=== PATIENT | male | born 1950 | race Caucasian/White ===

== ENCOUNTER 2016-07-27 11:57 | Observation (INO) | payer OTHER ==
[2016-07-27] MEDS ORDERED: Sodium Chloride 0.9% 10 ML Syringe FLUSH PRN (12:05)
[2016-07-27] MEDS ORDERED: Sodium Chloride 0.9% 2.5 ML Syringe FLUSH PRN (12:05)
--- NOTE | 2016-07-27 12:13 | EDM.PDOC ---
ED HPI GENERAL MEDICAL PROBLEM - General Chief Complaint: General Stated Complaint: [facility] Time Seen by Provider: 07/27/16 11:57 - History of Present Illness INITIAL COMMENTS - FREE TEXT/NARRATIVE: HISTORY AND PHYSICAL: History of present illness: The patient is a 66-year-old male with a history of diabetes irregular heartbeat chronic neck pain and presents [facility] with a history of a syncopal event this morning. According to the patient he had a normal day yesterday and slept all night without difficulty and woke this morning at the usual time and went to go to the bathroom. While he was standing to urinate he had a syncopal event at 4:45 AM. According to the patient he had no preceding symptoms of dizziness lightheadedness chest pain headache nausea and the next thing that he recalls is being on the ground. He says that he has a dull headache and a slight neck pain but he has chronic neck pain problems. He has no extremity complaints except a small bruise on his right knee and the bones of the right knee did not bother him. He has no hip pain no abdominal complaints no chest pain or shortness of breath no palpitations no nausea no vomiting and no recent diarrhea or fevers. The patient also denies any mid or lower back pain. The patient presented to the [facility] for evaluation and was sent here. The patient says he was not unconscious for a long period time. The patient states he had a similar episode to this less than 6 months ago but he was not urinating at the time but sitting in his chair watching television. Patient states he has a history of an irregular heartbeat for which he takes metoprolol that was diagnosed several years ago but he was not sure of the name of his arrhythmia. The patient does not follow with a it operations analyst but only at the [facility]. Patient has been eating and drinking normally. In the ED he presents with a dull headache and slight neck ache which is more than his usual neck pain and no other complaints or neurosensory changes. He currently denies any chest pain shortness of breath or palpitations. Review of systems: As per history of present illness and below otherwise all systems reviewed and negative. Past medical history: As per history of present illness and as reviewed below otherwise noncontributory. Surgical history: As per history of present illness and as reviewed below otherwise noncontributory. Social history: No reported history of drug or alcohol abuse. Family history: As per history of present illness and as reviewed below otherwise noncontributory. Physical exam: General: Well-developed well-nourished male who is nontoxic and speaking clearly and easily in the ED. He ambulated in without difficulty and speaks without difficulty. HEENT: Atraumatic, normocephalic, there are no palpable bony deformities or soft tissue swelling on the scalp, there is no facial swelling or palpable deformities, pupils reactive, negative for conjunctival pallor or scleral icterus, mucous membranes moist, throat clear, neck supple, nontender, trachea midline. There are no midline step-offs tenderness defects of the cervical spine but some diffuse paraspinal tenderness in the upper area. Lungs: Clear to auscultation, breath sounds equal bilaterally, chest nontender. Heart: S1S2, regular, negative for clicks, rubs, or JVD. Abdomen: Soft, nondistended, nontender. Negative for masses or hepatosplenomegaly. Negative for costovertebral tenderness. Pelvis: Stable nontender. Genitourinary: Deferred. Rectal: Deferred. Extremities: Atraumatic except for a very superficial small abrasion at his right knee without any palpable deformities soft tissue swelling effusions or defects. There is no tenderness at the right knee and he has full range of motion. He is no bony hip tenderness and all other extremities have full range of motion without defects or deformities., negative for cords or calf pain. Neurovascular unremarkable. Neuro: Awake, alert, oriented. Cranial nerves II through XII unremarkable. Cerebellum unremarkable. Motor and sensory unremarkable throughout. Exam nonfocal. Back: There are no midline step-offs tenderness defects of the thoracic or lumbar spine and no posterior rib or posterior pelvis tenderness. Diagnostics: CT of the head and C-spine, orthostatic vitals, EKG, CBC CMP troponin TSH UA INR magnesium level, one view chest x-ray Therapeutics: IV O2 monitor 1346: All testing results were discussed with the patient as well as with our hospitalist, Dr. Benítez. He will be admitted as an observation admission and is agreeable to do so. Patient has been stable in the ER and asymptomatic Impression: Syncopal event Definitive disposition and diagnosis as appropriate pending reevaluation and review of above. head Pain Score (Numeric/FACES): 7 - Related Data Allergies Allergy/AdvReac Type Severity Reaction Status Date / Time Penicillins Allergy Rash Verified 07/27/16 12:07 sulfamethoxazole Allergy Itching Verified 07/27/16 12:00 [From Bactrim] trimethoprim [From Bactrim] Allergy Itching Verified 07/27/16 12:00 Ionic contrast media Allergy Anaphylactic Uncoded 07/27/16 12:07 Shock Home Meds: Home Meds Aspirin 81 mg PO DAILY 07/27/16 [History] Chlorthalidone 25 mg PO DAILY 07/27/16 [History] Cyclobenzaprine [Flexeril] 10 mg PO TID 07/27/16 [History] Dextran 70/Hypromellose [Artificial Tears Eye Drops] 1 drop OP BID 07/27/16 [ History] Finasteride 5 mg PO DAILY 07/27/16 [History] Fish Oil/[place]-3 Fatty Acids [Fish Oil 1,000 MG] 1,000 mg PO DAILY 07/27/16 [ History] Fluticasone Propionate [Flonase] 1 spray NASBOTH DAILY 07/27/16 [History] Gabapentin [Neurontin] 200 mg PO DAILY 07/27/16 [History] Gabapentin [Neurontin] 800 mg PO BEDTIME 07/27/16 [History] Insulin Glarg,Human.Rec.Analog [Lantus] 0 units SUBCUT BID 07/27/16 [History] Loratadine [Allergy] 10 mg PO DAILY 07/27/16 [History] Magnesium Oxide 420 mg PO DAILY 07/27/16 [History] Metoprolol Tartrate 37.5 mg PO BID 07/27/16 [History] Omeprazole 20 mg PO BIDAC 07/27/16 [History] Tamsulosin [Flomax] 0.4 mg PO BIDPC 07/27/16 [History] glipiZIDE [Glucotrol] 7.5 mg PO BIDAC 07/27/16 [History] metFORMIN HCl [Metformin HCl] 1,000 mg PO BID 07/27/16 [History] oxyCODONE HCl/Acetaminophen [Endocet 5-325 Tablet] 1 tab PO Q6H PRN 07/27/16 [ History] ED ROS GENERAL - Review of Systems Review Of Systems: ROS reveals no pertinent complaints other than HPI. ED EXAM, GENERAL - Physical Exam Exam: See Below (See dictation) Course - Vital Signs Last Recorded V/S: Last Vital Signs Temp 37.0 C 07/27/16 12:03 Pulse 83 07/27/16 12:53 Resp 16 07/27/16 12:53 BP 129/73 07/27/16 12:53 Pulse Ox 98 07/27/16 12:53 Orthostatic Blood Pressure [ 116/70 Standing] Orthostatic Blood Pressure [ 130/67 Sitting] Orthostatic Blood Pressure [ 130/72 Supine] - Orders/Labs/Meds Orders: Active Orders 24 hr Category Date Time Status Patient Status [ADT] Stat ADT 07/27/16 13:46 Ordered Cardiac Monitoring [RC] CONTINUOUS Care 07/27/16 12:05 Active EKG Documentation Completion [RC] STAT Care 07/27/16 12:05 Active Orthostatic Vital Signs [RC] ASDIRECTED Care 07/27/16 12:06 Active Oxygen Therapy, ED [RC] ASDIRECTED Care 07/27/16 12:05 Active Pulse Oximetry [RC] CONTINUOUS Care 07/27/16 12:06 Active Cervical Spine wo Cont [CT] Stat Exams 07/27/16 12:07 Taken Head wo Cont [CT] Stat Exams 07/27/16 12:06 Ordered Sodium Chloride 0.9% [Normal Saline] 1,000 ml Med 07/27/16 13:15 Active IV ASDIRECTED Sodium Chloride 0.9% [Saline Flush] Med 07/27/16 12:05 Active 10 ml FLUSH ASDIRECTED PRN Sodium Chloride 0.9% [Saline Flush] Med 07/27/16 12:05 Active 2.5 ml FLUSH ASDIRECTED PRN Saline Lock Insert [OM.PC] Stat Oth 07/27/16 12:05 Ordered Medication Orders Sodium Chloride (Normal Saline) 1,000 mls @ 100 mls/hr IV ASDIRECTED JUAN Sodium Chloride (Saline Flush) 10 ml FLUSH ASDIRECTED PRN PRN Reason: Keep Vein Open Sodium Chloride (Saline Flush) 2.5 ml FLUSH ASDIRECTED PRN PRN Reason: Keep Vein Open Labs: Laboratory Tests 07/27/16 07/27/16 07/27/16 Range/Units 12:20 12:20 12:20 WBC 10.15 (4.0-11.0) K/uL RBC 4.22 L (4.50-5.90) M/uL Hgb 12.8 L (13.0-17.0) g/dL Hct 38.8 (38.0-50.0) % MCV 91.9 (80.0-98.0) fL MCH 30.3 (27.0-32.0) pg MCHC 33.0 (31.0-37.0) g/dL RDW Std Deviation 43.9 (28.0-62.0) fl RDW Coeff of Neelam 13 (11.0-15.0) % Plt Count 208 (150-400) K/uL MPV 9.20 (7.40-12.00) fL Neut % (Auto) 78.1 (48.0-80.0) % Lymph % (Auto) 16.7 (16.0-40.0) % Charlton % (Auto) 4.3 (0.0-15.0) % Eos % (Auto) 0.6 (0.0-7.0) % Baso % (Auto) 0.3 (0.0-1.5) % Neut # (Auto) 7.9 H (1.4-5.7) K/uL Lymph # (Auto) 1.7 (0.6-2.4) K/uL Charlton # (Auto) 0.4 (0.0-0.8) K/uL Eos # (Auto) 0.1 (0.0-0.7) K/uL Baso # (Auto) 0.0 (0.0-0.1) K/uL Nucleated RBC % 0.0 /100WBC Nucleated RBCs # 0 K/uL INR (0.86-1.11) Sodium 141 (136-146) mmol/L Potassium 4.6 (3.5-5.1) mmol/L Chloride 101 (98-110) mmol/L Carbon Dioxide 22 (21-31) mmol/L BUN 28 H (6.0-23.0) mg/dL Creatinine 1.2 (0.6-1.5) mg/dL Est Cr Clr Drug Dosing 67.00 mL/min Estimated GFR (MDRD) > 60.0 ml/min Glucose 206 H (60-110) mg/dL Calcium 10.3 (8.8-10.8) mg/dL Magnesium 1.4 L (1.5-2.3) mEq/L Total Bilirubin 0.5 (0.1-1.5) mg/dL AST 17 (5-40) IU/L ALT 23 (8-54) IU/L Alkaline Phosphatase 53 (40-150) Troponin I < 0.10 (0.0-0.29) NG/ML Total Protein 7.1 (6.0-8.0) g/dL Albumin 4.3 (3.4-4.8) g/dL Globulin 2.8 (2.0-3.5) g/dL Albumin/Globulin Ratio 1.5 (1.3-2.8) TSH 3rd Generation 0.68 (0.47-5.0) uIU/mL Urine Color Urine Appearance Urine pH (5.0-8.0) Ur Specific Ellery (1.001-1.035) Urine Protein (NEGATIVE) mg/dL Urine Glucose (UA) (NEGATIVE) mg/dL Urine Ketones (NEGATIVE) mg/dL Urine Occult Blood (NEGATIVE) Urine Nitrite (NEGATIVE) Urine Bilirubin (NEGATIVE) Urine Urobilinogen (<2.0) EU/dL Ur Leukocyte Esterase (NEGATIVE) Urine RBC (0-2/HPF) Urine WBC (0-5/HPF) Ur Epithelial Cells (NONE-FEW) Urine Bacteria (NEGATIVE) 07/27/16 07/27/16 Range/Units 12:20 13:00 WBC (4.0-11.0) K/uL RBC (4.50-5.90) M/uL Hgb (13.0-17.0) g/dL Hct (38.0-50.0) % MCV (80.0-98.0) fL MCH (27.0-32.0) pg MCHC (31.0-37.0) g/dL RDW Std Deviation (28.0-62.0) fl RDW Coeff of Neelam (11.0-15.0) % Plt Count (150-400) K/uL MPV (7.40-12.00) fL Neut % (Auto) (48.0-80.0) % Lymph % (Auto) (16.0-40.0) % Charlton % (Auto) (0.0-15.0) % Eos % (Auto) (0.0-7.0) % Baso % (Auto) (0.0-1.5) % Neut # (Auto) (1.4-5.7) K/uL Lymph # (Auto) (0.6-2.4) K/uL Charlton # (Auto) (0.0-0.8) K/uL Eos # (Auto) (0.0-0.7) K/uL Baso # (Auto) (0.0-0.1) K/uL Nucleated RBC % /100WBC Nucleated RBCs # K/uL INR 1.03 (0.86-1.11) Sodium (136-146) mmol/L Potassium (3.5-5.1) mmol/L Chloride (98-110) mmol/L Carbon Dioxide (21-31) mmol/L BUN (6.0-23.0) mg/dL Creatinine (0.6-1.5) mg/dL Est Cr Clr Drug Dosing mL/min Estimated GFR (MDRD) ml/min Glucose (60-110) mg/dL Calcium (8.8-10.8) mg/dL Magnesium (1.5-2.3) mEq/L Total Bilirubin (0.1-1.5) mg/dL AST (5-40) IU/L ALT (8-54) IU/L Alkaline Phosphatase (40-150) Troponin I (0.0-0.29) NG/ML Total Protein (6.0-8.0) g/dL Albumin (3.4-4.8) g/dL Globulin (2.0-3.5) g/dL Albumin/Globulin Ratio (1.3-2.8) TSH 3rd Generation (0.47-5.0) uIU/mL Urine Color YELLOW Urine Appearance CLEAR Urine pH 5.5 (5.0-8.0) Ur Specific Ellery 1.020 (1.001-1.035) Urine Protein NEGATIVE (NEGATIVE) mg/dL Urine Glucose (UA) 100 H (NEGATIVE) mg/dL Urine Ketones 15 H (NEGATIVE) mg/dL Urine Occult Blood NEGATIVE (NEGATIVE) Urine Nitrite NEGATIVE (NEGATIVE) Urine Bilirubin NEGATIVE (NEGATIVE) Urine Urobilinogen 0.2 (<2.0) EU/dL Ur Leukocyte Esterase TRACE (NEGATIVE) Urine RBC 0-1 (0-2/HPF) Urine WBC 1-2 (0-5/HPF) Ur Epithelial Cells RARE (NONE-FEW) Urine Bacteria FEW (NEGATIVE) Meds: Medications Generic Name Dose Route Start Last Admin Trade Name Freq PRN Reason Stop Dose Admin Sodium Chloride 1,000 mls @ 100 mls/hr 07/27/16 13:15 Normal Saline IV ASDIRECTED JUAN Sodium Chloride 10 ml 07/27/16 12:05 Saline Flush FLUSH ASDIRECTED PRN Keep Vein Open Sodium Chloride 2.5 ml 07/27/16 12:05 Saline Flush FLUSH ASDIRECTED PRN Keep Vein Open Departure - Departure Time of Disposition: 13:48 Disposition: Refer to Observation Condition: good Clinical Impression: Syncope Qualifiers: Syncope type: unspecified Qualified Code(s): R55 - Syncope and collapse Forms: ED Department Discharge - My Orders Last 24 Hours: My Active Orders 07/27/16 12:05 Cardiac Monitoring [RC] CONTINUOUS EKG Documentation Completion [RC] STAT Oxygen Therapy, ED [RC] ASDIRECTED Sodium Chloride 0.9% [Saline Flush] 10 ml FLUSH ASDIRECTED PRN Sodium Chloride 0.9% [Saline Flush] 2.5 ml FLUSH ASDIRECTED PRN Saline Lock Insert [OM.PC] Stat 07/27/16 12:06 Orthostatic Vital Signs [RC] ASDIRECTED Pulse Oximetry [RC] CONTINUOUS Head wo Cont [CT] Stat 07/27/16 12:07 Cervical Spine wo Cont [CT] Stat 07/27/16 13:15 Sodium Chloride 0.9% [Normal Saline] 1,000 ml IV ASDIRECTED 07/27/16 13:46 Patient Status [ADT] Stat - Assessment/Plan Last 24 Hours: My Active Orders 07/27/16 12:05 Cardiac Monitoring [RC] CONTINUOUS EKG Documentation Completion [RC] STAT Oxygen Therapy, ED [RC] ASDIRECTED Sodium Chloride 0.9% [Saline Flush] 10 ml FLUSH ASDIRECTED PRN Sodium Chloride 0.9% [Saline Flush] 2.5 ml FLUSH ASDIRECTED PRN Saline Lock Insert [OM.PC] Stat 07/27/16 12:06 Orthostatic Vital Signs [RC] ASDIRECTED Pulse Oximetry [RC] CONTINUOUS Head wo Cont [CT] Stat 07/27/16 12:07 Cervical Spine wo Cont [CT] Stat 07/27/16 13:15 Sodium Chloride 0.9% [Normal Saline] 1,000 ml IV ASDIRECTED 07/27/16 13:46 Patient Status [ADT] Stat
[2016-07-27 13:00] LABS: CHLORIDE,CL 101 mmol/L (98-110); SODIUM,NA 141 mmol/L (136-146)
--- NOTE | 2016-07-27 13:21 | CR ---
EXAMINATION: PA chest radiograph. HISTORY: Weakness. FINDINGS: The trachea is midline. The cardiomediastinal silhouette is within normal limits. No pulmonary infil trates, effusions or pneumothorax. Moderate hyperinflation and mild interstitial prominence. Osseous structures appear unremarkable. IMPRESSION: No acute cardiopulmonary process.
[2016-07-27] MEDS: Sodium Chloride 0.9% 1,000 ML IV SCH ×2 (14:11→23:14)
--- NOTE | 2016-07-27 14:37 | PCM.HP ---
H&P History of Present Illness - General Date of Service: 07/27/16 Source of Information: [facility], Other ([facility] - History of Present Illness Initial Comments - Free Text/Narative: 66 y o diabetic man with history unknown arrhythmia passed out after urinating. There were no premonitory symptoms, no chest pain, no nausea, diaphoresis nor any awareness of unusual heart beat Recalls one prior episode of syncope, sitting of bed, he fell forward onto all fours Onset of Symptoms: Reports: today Duration of Symptoms: Reports: Minutes: Severity: severe Associated Symptoms: Reports: no other symptoms head Pain Score (Numeric/FACES): 7 - Related Data Allergies/Adverse Reactions: Allergies Allergy/AdvReac Type Severity Reaction Status Date / Time Penicillins Allergy Rash Verified 07/27/16 12:07 sulfamethoxazole Allergy Itching Verified 07/27/16 12:00 [From Bactrim] trimethoprim [From Bactrim] Allergy Itching Verified 07/27/16 12:00 Ionic contrast media Allergy Anaphylactic Uncoded 07/27/16 12:07 Shock Home Medications: Home Meds Aspirin 81 mg PO DAILY 07/27/16 [History] Chlorthalidone 25 mg PO DAILY 07/27/16 [History] Cyclobenzaprine [Flexeril] 10 mg PO TID 07/27/16 [History] Dextran 70/Hypromellose [Artificial Tears Eye Drops] 1 drop OP BID 07/27/16 [ History] Finasteride 5 mg PO DAILY 07/27/16 [History] Fish Oil/[place]-3 Fatty Acids [Fish Oil 1,000 MG] 1,000 mg PO DAILY 07/27/16 [ History] Fluticasone Propionate [Flonase] 1 spray NASBOTH DAILY 07/27/16 [History] Gabapentin [Neurontin] 200 mg PO DAILY 07/27/16 [History] Gabapentin [Neurontin] 800 mg PO BEDTIME 07/27/16 [History] Insulin Glarg,Human.Rec.Analog [Lantus] 0 units SUBCUT BID 07/27/16 [History] Loratadine [Allergy] 10 mg PO DAILY 07/27/16 [History] Magnesium Oxide 420 mg PO DAILY 07/27/16 [History] Metoprolol Tartrate 37.5 mg PO BID 07/27/16 [History] Omeprazole 20 mg PO BIDAC 07/27/16 [History] Tamsulosin [Flomax] 0.4 mg PO BIDPC 07/27/16 [History] glipiZIDE [Glucotrol] 7.5 mg PO BIDAC 07/27/16 [History] metFORMIN HCl [Metformin HCl] 1,000 mg PO BID 07/27/16 [History] oxyCODONE HCl/Acetaminophen [Endocet 5-325 Tablet] 1 tab PO Q6H PRN 07/27/16 [ History] Past Medical History HEENT History: Reports: Hard of hearing Cardiovascular History: Reports: Arrhythmia, Hypertension Respiratory History: Reports: COPD Gastrointestinal History: Reports: GERD Genitourinary History: Reports: BPH Musculoskeletal History: Reports: Back pain, chronic, Neck pain, chronic, Other (see below) Other Musculoskeletal History: hip pain Neurological History: Reports: Neuropathy, diabetic Endocrine/Metabolic History: Reports: Diabetes, type II - Past Surgical History Male Surgical History: Reports: Kidney stone extraction (had nephrostomy), Other (see below) (urinary retention, occ straight cath) Neurological Surgical History: Reports: C-Spine (anterior approach) Social & Family History - Family History Family Medical History: Noncontributory Oncologic: Reports: Colon Other Oncologic Family History: father 8oies - Tobacco Use Smoking Status *Q: Never Smoker - Caffeine Use Caffeine Use: Reports: None - Alcohol Use Alcohol Use History: No - Recreational Drug Use Recreational Drug Use: No - Living Situation & Occupation Occupation: unemployed (retired police and farming) H&P Review of Systems - Review of Systems: Review Of Systems: See Below General: Reports: no symptoms HEENT: Reports: no symptoms Pulmonary: Reports: No Symptoms Cardiovascular: Reports: no symptoms Gastrointestinal: Reports: No symptoms Genitourinary: Reports: retention Musculoskeletal: Reports: joint pain Skin: Reports: no symptoms Psychiatric: Reports: no symptoms Neurological: Reports: Paresthesia, Syncope Exam - Exam Exam: See Below - Vital Signs Vital Signs: Last Vital Signs Temp 37.0 C 07/27/16 12:03 Pulse 83 07/27/16 12:53 Resp 16 07/27/16 12:53 BP 129/73 07/27/16 12:53 Pulse Ox 98 07/27/16 12:53 Weight: 80.4 kg - Exam General: alert, oriented HEENT: Conjunctiva clear Neck: 2+ carotid pulse wo bruit Lungs: Clear to auscultation Cardiovascular: regular rate, regular rhythm Abdomen: normal bowel sounds (Male) Exam: Deferred Rectal (Males) Exam: Deferred Back Exam: normal inspection Extremities: normal inspection Skin: warm, dry Psychiatric: alert, normal affect - Patient Data Result Diagrams: 07/27/16 12:20 07/27/16 12:20 *Q Meaningful Use (ADM) - VTE *Q VTE Criteria *Q: - Stroke *Q Stroke Criteria *Q: - AMI *Q AMI Criteria *Q: Problem List Initiated/Reviewed/Updated: Yes Orders Last 24hrs: Active Orders 24 hr Category Date Time Status Orthostatic Vital Signs [RC] ASDIRECTED Care 07/27/16 14:28 Active Telemetry Monitoring [Cardiac Monitoring] [RC] Q8H Care 07/27/16 14:05 Active Medication Orders Sodium Chloride (Normal Saline) 1,000 mls @ 100 mls/hr IV ASDIRECTED JUAN Last Admin: 07/27/16 14:11 Dose: 100 mls/hr Sodium Chloride (Saline Flush) 10 ml FLUSH ASDIRECTED PRN PRN Reason: Keep Vein Open Sodium Chloride (Saline Flush) 2.5 ml FLUSH ASDIRECTED PRN PRN Reason: Keep Vein Open Assessment/Plan Comment:: syncope associated with micturition (Though 1st episode was not) history of arrhythmia urinary retention diabetes Necj pain and Hx cervical laminectomy
[2016-07-27] MEDS ORDERED: Ibuprofen 600 MG Tab PO PRN (14:49)
[2016-07-27] MEDS ORDERED: Magnesium Sulfate/Water 4 GM in Premix Bag 1 BAG IV ONE (14:59)
[2016-07-27] MEDS: Magnesium Oxide 400 MG Tab PO SCH (15:33)
--- NOTE | 2016-07-27 16:05 | CT ---
EXAM DATE: 07/27/16 PATIENT'S AGE: 66 Patient: CAITLYN CASTRO Facility: [place], [place] Site . Site : 1950 Study: CT Head [id number] 12:52:09 PM Ordering Physician: Amina Berrios Final Report: INDICATION: Patient fell and struck his head. Complains of headache. COMPARISON: none TECHNIQUE: A CT volumetric acquisition was performed of the brain without IV contrast. FINDINGS: The CT images reveal a normal appearance of the cerebral ventricles and basal cisterns. There is no evidence of intracranial hemorrhage, tissue infarction or mass effect. There is normal [place] white matter differentiation. The mastoid air cells and middle ear cavities are clear. The calvarium appears intact. There is normal aeration of the visualized paranasal sinuses. IMPRESSION: Negative head CT. Dictated by Vincent Mahmood MD @ Jul 27 2016 12:53PM (Electronic Signature) Report Signed by Proxy. MESHA
--- NOTE | 2016-07-27 16:05 | CT ---
EXAM DATE: 07/27/16 PATIENT'S AGE: 66 Patient: CAITLYN CASTRO Facility: [place], [place] Site . Site : 1950 Study: CT Spine Cervical [id number]/[id number] 12:52:30 PM Ordering Physician: Amina Berrios Final Report: Indication: Trauma, patient fell. Technique: A CT volumetric acquisition was performed of the cervical spine without IV contrast. Findings: The cervical vertebra demonstrate anatomic alignment on the sagittal and coronal reformations. There is no evidence of an acute fracture, subluxation or paraspinal hematoma. There is ankylosis of the C6 and C7 vertebral bodies and there are bulky anterior marginal osteophytes and disc degeneration above this level of fusion at C5-6. There is disc degeneration also at C7-T1. The facet joints show anatomic alignment. There is joint space narrowing and facet degeneration on the left at C4-5. There is no evidence of an epidural or paraspinal soft tissue hematoma. Impression: Underlying degenerative disc disease and facet arthropathy. No evidence of a fracture or vertebral subluxation. Dictated by Vincent Mahmood MD @ Jul 27 2016 12:53PM (Electronic Signature) Report Signed by Proxy. MESHA
[2016-07-27] MEDS: oxyCODONE 5 MG Tab PO PRN (16:09)
[2016-07-27] MEDS: Omeprazole 20 MG Cap.CR PO SCH (16:23)
[2016-07-27] MEDS: glipiZIDE 5 MG Tab PO SCH (16:23)
[2016-07-27] MEDS: Tamsulosin 0.4 MG Cap.ER PO SCH (17:42)
[2016-07-27] MEDS: metFORMIN 500 MG Tab PO SCH (17:59)
[2016-07-27] MEDS ORDERED: Gabapentin 800 MG Tab PO SCH (21:00)
[2016-07-27] MEDS ORDERED: metFORMIN 500 MG Tab PO SCH (21:00)
[2016-07-27] MEDS ORDERED: Insulin Glargine,Human Rec. Analog 100 Units/ML 3 ML Pen SUBCUT SCH ×2 (21:00)
[2016-07-27] MEDS: Acetaminophen/oxyCODONE 325-5 MG Tab PO PRN (21:11)
[2016-07-27] MEDS: Carboxymethylcellulose Sodium 0.5% Ophth Soln 0.4 ML UD Box of 30 EYEBOTH SCH (21:13)
[2016-07-27] MEDS: Metoprolol Tartrate 25 MG Tab PO SCH (21:13)
[2016-07-28] MEDS: Acetaminophen/oxyCODONE 325-5 MG Tab PO PRN ×2 (04:35→11:34)
[2016-07-28 05:04] LABS: CHLORIDE,CL 104 mmol/L (98-110); SODIUM,NA 143 mmol/L (136-146)
[2016-07-28] MEDS: Omeprazole 20 MG Cap.CR PO SCH (06:43)
[2016-07-28] MEDS ORDERED: metFORMIN 500 MG Tab PO SCH ×2 (08:00→18:00)
[2016-07-28] MEDS ORDERED: Potassium Chloride 20 MEQ Tab.ER PO ONE (08:45)
[2016-07-28] MEDS ORDERED: Fluticasone Propionate Nasal Spray 16 GM Bottle NASBOTH SCH (09:00)
[2016-07-28] MEDS ORDERED: Gabapentin 100 MG Cap PO SCH (09:00)
[2016-07-28] MEDS ORDERED: Finasteride 5 MG Tab PO SCH (09:00)
[2016-07-28] MEDS ORDERED: Chlorthalidone 25 MG Tab PO SCH (09:00)
[2016-07-28] MEDS ORDERED: Aspirin 81 MG Tab.Chew PO SCH (09:00)
[2016-07-28] MEDS ORDERED: Loratadine 10 MG Tab PO SCH (09:00)
[2016-07-28 09:01] VITALS: BP 118/62
[2016-07-28] MEDS: oxyCODONE 5 MG Tab PO PRN (09:29)
[2016-07-28] MEDS: Magnesium Oxide 400 MG Tab PO SCH (09:30)
[2016-07-28] MEDS: metFORMIN 500 MG Tab PO SCH (09:30)
[2016-07-28] MEDS: Tamsulosin 0.4 MG Cap.ER PO SCH (09:31)
[2016-07-28] MEDS: glipiZIDE 5 MG Tab PO SCH (09:32)
[2016-07-28] MEDS: Metoprolol Tartrate 25 MG Tab PO SCH (09:35)
[2016-07-28] MEDS: Carboxymethylcellulose Sodium 0.5% Ophth Soln 0.4 ML UD Box of 30 EYEBOTH SCH (09:42)
--- NOTE | 2016-07-28 13:49 | PCM.DCSUM1 ---
Discharge Summary - Hospital Course Brief History: This 66 year old male with a pmh of diabetes, irregular heartbeat , chronic neck pain presented from the [facility] with a history of a syncopal event yesterday morning. According to the patient he had a normal day yesterday and slept all night without difficulty and woke this morning and went to go to the bathroom. While he was standing to urinate he had a syncopal event at 4:45 AM. According to the patient he had no preceding symptoms of dizziness lightheadedness chest pain headache nausea and the next thing that he recalls is being on the ground after hearing a loud bang. He says that he has a dull headache and a slight neck pain but he has chronic neck pain problems. He has no extremity complaints except a small bruise on his right knee and the bones of the right knee did not bother him. He has no hip pain no abdominal complaints no chest pain or shortness of breath no palpitations no nausea no vomiting and no recent diarrhea or fevers. The patient also denies any mid or lower back pain. The patient presented to the [facility] for evaluation and was sent here. The patient says he was not unconscious for a long period time. The patient states he had a similar episode to this less than 6 months ago but he was not urinating at the time but sitting in his chair watching television. Patient states he has a history of an irregular heartbeat for which he takes Metoprolol that was diagnosed several years ago but he was not sure of the name of his arrhythmia. The patient does not follow with a plastic battery assembler but only at the [facility]. Patient has been eating and drinking normally. In the ED he presents with a dull headache and slight neck ache which is more than his usual neck pain and no other complaints or neurosensory changes. He currently denies any chest pain shortness of breath or palpitations. - Discharge Data Discharge Date: 07/28/16 Discharge Disposition: Home, Self-Care 01 Condition: Good - Patient Instructions Diet: Heart Healthy Diet Activity: No Strenuous Activities Driving: Do Not Drive Showering/Bathing: July Shower Notify Provider of: Fever, Increased Pain, Swelling and Redness, Drainage, Nausea and/or Vomiting - Discharge Plan Home Medications: Home Meds Aspirin 81 mg PO DAILY 07/27/16 [History] Chlorthalidone 25 mg PO DAILY 07/27/16 [History] Dextran 70/Hypromellose [Artificial Tears Eye Drops] 1 drop OP BID 07/27/16 [ History] Finasteride 5 mg PO DAILY 07/27/16 [History] Fish Oil/[place]-3 Fatty Acids [Fish Oil 1,000 MG] 1,000 mg PO DAILY 07/27/16 [ History] Fluticasone Propionate [Flonase] 1 spray NASBOTH DAILY 07/27/16 [History] Gabapentin [Neurontin] 200 mg PO DAILY 07/27/16 [History] Gabapentin [Neurontin] 800 mg PO BEDTIME 07/27/16 [History] Insulin Glarg,Human.Rec.Analog [Lantus] 0 units SUBCUT BID 07/27/16 [History] Loratadine [Allergy] 10 mg PO DAILY 07/27/16 [History] Magnesium Oxide 420 mg PO DAILY 07/27/16 [History] Metoprolol Tartrate 37.5 mg PO BID 07/27/16 [History] Omeprazole 20 mg PO BIDAC 07/27/16 [History] Tamsulosin [Flomax] 0.4 mg PO BIDPC 07/27/16 [History] glipiZIDE [Glucotrol] 7.5 mg PO BIDAC 07/27/16 [History] metFORMIN HCl [Metformin HCl] 1,000 mg PO BID 07/27/16 [History] oxyCODONE HCl/Acetaminophen [Endocet 5-325 Tablet] 1 tab PO Q6H PRN 07/27/16 [ History] Patient Handouts: Syncope, [id number] [facility] and follow up with Cardiology approved by [facility]. ) - Discharge Summary/Plan Comment DC Time >30 min.: No Discharge Summary/Plan Comment: Discharge diagnoses: Vasovagul syncopal episode Cardiac arrhythmia DM type 2 Chronic neck pain Ken was admitted for syncopal episode. He was monitored on telemetry and no arrhythmia noted during stay. No further syncope occurred. ECHO is pending on discharge and Carotid U/S revealed scattered athermatous plaque through carotids without increase velocities suggesting less than 50% stenosis. Episode sounds as though he has a vasovagal episode, he passed out after getting up from sleeping. He does report staggering somewhat getting out of bed and feeling like he got up too fast. I will discharge him home today without changes to medications. Head CT negative and cervical neck CT negative for acute fracture, degenerative disc disease noted. He is to follow up with PCP and plastic battery assembler. He is encouraged to return to clinic or ED if concerns should arise. - General Info Date of Service: 07/28/16 Admission Dx/Problem (Free Text: Syncope Subjective Update: Feeling well today. No further episodes and is feeling good today. Denies chest pain or palpitations. Eager for discharge. Functional Status: Reports: pain controlled, tolerating diet, ambulating, urinating - Review of Systems General: Reports: No Symptoms. Denies: Fever HEENT: Reports: no symptoms. Denies: sinus congestion, sore throat Pulmonary: Reports: no symptoms. Denies: shortness of breath, cough, sputum, hemoptysis Cardiovascular: Reports: No Symptoms. Denies: Chest Pain, Palpitations Gastrointestinal: Reports: No symptoms. Denies: Abdominal pain, Nausea, Vomiting Genitourinary: Reports: no symptoms. Denies: dysuria, frequency, burning Musculoskeletal: Reports: neck pain (noted to back of neck and down each side ' feels like whip lash". ) Skin: Reports: no symptoms Neurological: Reports: No Symptoms Psychiatric: Reports: no symptoms - Patient Data Vitals - Most Recent: Last Vital Signs Temp 97.7 F 07/28/16 08:00 Pulse 87 07/28/16 09:35 Resp 16 07/28/16 08:00 BP 118/62 07/28/16 09:35 Pulse Ox 97 07/28/16 08:00 Orthostatic Blood Pressure [ 118/65 Standing] Orthostatic Blood Pressure [ 132/74 Sitting] Orthostatic Blood Pressure [ 132/74 Supine] Weight - Most Recent: 80.4 kg I&O - Last 24 hours: Intake & Output 07/27/16 07/28/16 07/28/16 22:59 06:59 14:59 Intake Total 300 1231 Output Total 1220 Balance 300 11 Lab Results - Last 24 hrs: Laboratory Results - last 24 hr 07/27/16 07/27/16 07/27/16 Range/Units 16:22 18:25 21:18 WBC (4.0-11.0) K/uL RBC (4.50-5.90) M/uL Hgb (13.0-17.0) g/dL Hct (38.0-50.0) % MCV (80.0-98.0) fL MCH (27.0-32.0) pg MCHC (31.0-37.0) g/dL RDW Std Deviation (28.0-62.0) fl RDW Coeff of [place] (11.0-15.0) % Plt Count (150-400) K/uL MPV (7.40-12.00) fL Neut % (Auto) (48.0-80.0) % Lymph % (Auto) (16.0-40.0) % [place] % (Auto) (0.0-15.0) % Eos % (Auto) (0.0-7.0) % Baso % (Auto) (0.0-1.5) % Neut # (Auto) (1.4-5.7) K/uL Lymph # (Auto) (0.6-2.4) K/uL [place] # (Auto) (0.0-0.8) K/uL Eos # (Auto) (0.0-0.7) K/uL Baso # (Auto) (0.0-0.1) K/uL Nucleated RBC % /100WBC Nucleated RBCs # K/uL Sodium (136-146) mmol/L Potassium (3.5-5.1) mmol/L Chloride (98-110) mmol/L Carbon Dioxide (21-31) mmol/L BUN (6.0-23.0) mg/dL Creatinine (0.6-1.5) mg/dL Est Cr Clr Drug Dosing mL/min Estimated GFR (MDRD) ml/min Glucose (60-110) mg/dL POC Glucose 121 H 252 H (60-110) mg/dL Calcium (8.8-10.8) mg/dL Magnesium (1.5-2.3) mEq/L Troponin I < 0.10 (0.0-0.29) NG/ML 07/28/16 07/28/16 07/28/16 Range/Units 00:20 04:21 04:21 WBC 6.66 (4.0-11.0) K/uL RBC 3.99 L (4.50-5.90) M/uL Hgb 12.0 L (13.0-17.0) g/dL Hct 36.4 L (38.0-50.0) % MCV 91.2 (80.0-98.0) fL MCH 30.1 (27.0-32.0) pg MCHC 33.0 (31.0-37.0) g/dL RDW Std Deviation 43.6 (28.0-62.0) fl RDW Coeff of [place]el[place] 13 (11.0-15.0) % Plt Count 194 (150-400) K/uL MPV 9.20 (7.40-12.00) fL Neut % (Auto) 47.9 L (48.0-80.0) % Lymph % (Auto) 36.2 (16.0-40.0) % [place] % (Auto) 11.7 (0.0-15.0) % Eos % (Auto) 3.6 (0.0-7.0) % Baso % (Auto) 0.6 (0.0-1.5) % Neut # (Auto) 3.2 (1.4-5.7) K/uL Lymph # (Auto) 2.4 (0.6-2.4) K/uL [place] # (Auto) 0.8 (0.0-0.8) K/uL Eos # (Auto) 0.2 (0.0-0.7) K/uL Baso # (Auto) 0.0 (0.0-0.1) K/uL Nucleated RBC % 0.0 /100WBC Nucleated RBCs # 0 K/uL Sodium 143 (136-146) mmol/L Potassium 3.5 (3.5-5.1) mmol/L Chloride 104 (98-110) mmol/L Carbon Dioxide 26 (21-31) mmol/L BUN 25 H (6.0-23.0) mg/dL Creatinine 0.9 (0.6-1.5) mg/dL Est Cr Clr Drug Dosing 89.33 mL/min Estimated GFR (MDRD) > 60.0 ml/min Glucose 108 (60-110) mg/dL POC Glucose (60-110) mg/dL Calcium 9.6 (8.8-10.8) mg/dL Magnesium 2.0 (1.5-2.3) mEq/L Troponin I < 0.10 (0.0-0.29) NG/ML 07/28/16 07/28/16 07/28/16 Range/Units 06:17 07:00 11:26 WBC (4.0-11.0) K/uL RBC (4.50-5.90) M/uL Hgb (13.0-17.0) g/dL Hct (38.0-50.0) % MCV (80.0-98.0) fL MCH (27.0-32.0) pg MCHC (31.0-37.0) g/dL RDW Std Deviation (28.0-62.0) fl RDW Coeff of [place] (11.0-15.0) % Plt Count (150-400) K/uL MPV (7.40-12.00) fL Neut % (Auto) (48.0-80.0) % Lymph % (Auto) (16.0-40.0) % [place] % (Auto) (0.0-15.0) % Eos % (Auto) (0.0-7.0) % Baso % (Auto) (0.0-1.5) % Neut # (Auto) (1.4-5.7) K/uL Lymph # (Auto) (0.6-2.4) K/uL [place] # (Auto) (0.0-0.8) K/uL Eos # (Auto) (0.0-0.7) K/uL Baso # (Auto) (0.0-0.1) K/uL Nucleated RBC % /100WBC Nucleated RBCs # K/uL Sodium (136-146) mmol/L Potassium (3.5-5.1) mmol/L Chloride (98-110) mmol/L Carbon Dioxide (21-31) mmol/L BUN (6.0-23.0) mg/dL Creatinine (0.6-1.5) mg/dL Est Cr Clr Drug Dosing mL/min Estimated GFR (MDRD) ml/min Glucose (60-110) mg/dL POC Glucose 57 L 171 H 292 H (60-110) mg/dL Calcium (8.8-10.8) mg/dL Magnesium (1.5-2.3) mEq/L Troponin I (0.0-0.29) NG/ML Med Orders - Current: Current Medications Artificial Tears (Refresh Plus 0.5%) 0 each EYEBOTH BID [facility] Last Admin: 07/28/16 09:42 Dose: Not Given Aspirin (Aspirin) 81 mg PO DAILY [facility] Last Admin: 07/28/16 09:32 Dose: 81 mg Chlorthalidone (Chlorthalidone) 25 mg PO DAILY [facility] Last Admin: 07/28/16 09:42 Dose: 25 mg Finasteride (Proscar) 5 mg PO DAILY [facility] Last Admin: 07/28/16 09:33 Dose: 5 mg Fluticasone Propionate (Flonase) 0 gm NASBOTH DAILY [facility] Last Admin: 07/28/16 09:44 Dose: 1 spray Gabapentin (Neurontin) 200 mg PO DAILY [facility] Last Admin: 07/28/16 09:33 Dose: 200 mg Gabapentin (Neurontin) 800 mg PO BEDTIME [facility] Last Admin: 07/27/16 21:13 Dose: 800 mg Glipizide (Glucotrol) 7.5 mg PO BIDAC [facility] Last Admin: 07/28/16 09:32 Dose: 7.5 mg Sodium Chloride (Normal Saline) 1,000 mls @ 50 mls/hr IV ASDIRECTED [facility] Last Admin: 07/27/16 23:14 Dose: 50 mls/hr Ibuprofen (Motrin) 600 mg PO Q6H PRN PRN Reason: Pain (mild 1-3) Last Admin: 07/28/16 09:30 Dose: 600 mg Insulin Glargine (Lantus Solostar) 22 units SUBCUT BEDTIME [facility] Last Admin: 07/27/16 21:14 Dose: 22 units Loratadine (Claritin) 10 mg PO DAILY [facility] Last Admin: 07/28/16 09:42 Dose: 10 mg Magnesium Oxide (Magnesium Oxide) 400 mg PO DAILY [facility] Last Admin: 07/28/16 09:30 Dose: 400 mg Metformin HCl (Glucophage) 1,000 mg PO BIDMEALS [facility] Last Admin: 07/28/16 09:30 Dose: 1,000 mg Metoprolol Tartrate (Lopressor) 37.5 mg PO BID [facility] Last Admin: 07/28/16 09:35 Dose: 37.5 mg Omeprazole (Omeprazole) 20 mg PO BIDAC [facility] Last Admin: 07/28/16 06:43 Dose: 20 mg Oxycodone HCl (Oxycodone) 5 mg PO Q8H PRN PRN Reason: Pain (moderate 4-6) Last Admin: 07/28/16 09:29 Dose: 5 mg Oxycodone/Acetaminophen (Percocet 325-5 Mg) 1 tab PO Q6H PRN PRN Reason: Pain Last Admin: 07/28/16 11:34 Dose: 1 tab Sodium Chloride (Saline Flush) 10 ml FLUSH ASDIRECTED PRN PRN Reason: Keep Vein Open Sodium Chloride (Saline Flush) 2.5 ml FLUSH ASDIRECTED PRN PRN Reason: Keep Vein Open Tamsulosin HCl (Flomax) 0.4 mg PO BIDPC [facility] Last Admin: 07/28/16 09:31 Dose: 0.4 mg Discontinued Medications Magnesium Sulfate 4 gm/ Premix 100 mls @ 50 mls/hr IV ONETIME ONE Stop: 07/27/16 16:58 Last Admin: 07/27/16 15:33 Dose: 50 mls/hr Insulin Glargine (Lantus Solostar) 6 units SUBCUT BEDTIME [facility] Metformin HCl (Glucophage) 1,000 mg PO BID [facility] Metformin HCl (Glucophage) 1,000 mg PO BIDMEALS JUAN Metformin HCl (Glucophage) 1,000 mg PO BIDMEALS [facility] Potassium Chloride (Klor-Con M20) 40 meq PO ONETIME ONE Stop: 07/28/16 08:46 Last Admin: 07/28/16 09:31 Dose: 40 meq - Exam General: Reports: alert, oriented, cooperative Neck: Reports: supple, other (no nuchal rigidity, full movement noted tender to bilateral neck) Lungs: Reports: Clear to auscultation, Normal respiratory effort Cardiovascular: Reports: Regular Rate, Regular Rhythm Abdomen: Reports: bowel sounds present, soft, no tenderness, no distension Extremities: Reports: no edema, normal pulses Skin: Reports: warm, dry, intact Wound/Incisions: Reports: healing well Neurological: Reports: no new focal deficit Psy/Mental Status: Reports: alert, normal affect, normal mood *Q Meaningful Use (DIS) - VTE *Q VTE Criteria *Q: - Stroke *Q Stroke Criteria *Q: - AMI *Q AMI Criteria *Q:
--- NOTE | 2016-07-28 14:26 | US ---
EXAMINATION: Carotid US with macedo scale and duplex imaging. HISTORY: Syncope FINDINGS: Ultrasound examination of bilateral cervical carotid arteries was performed using macedo scale and dup nany imaging. Mild scattered atheromatous plaque is noted within the carotid arteries bilaterally. Antegrade flow is noted within the vertebrals. These are the peak velocities in cm per second (systole), right and left respectively, by a comma: CCA (common carotid artery) - 82, 76 ICA (internal carotid artery) - 103, 122 ECA (External carotid artery) - 121, 109 ICA/CCA systolic ratio Right - 1.45 Left - 1.69 IMPRESSION: There is scattered atheromatous plaque within the carotid arteries without increased velocities to s uggest greater than 50% stenosis.
--- NOTE | 2016-08-03 16:01 | ECHO ---
The echocardiogram report can be seen in this patient's EMR in the Reports section. MESHA
== END 2016-07-28 15:45 | disposition home or self-care (01) ==
LOC: MW.ED 11:57 → MW.MS 13:58
PROVIDERS: ADMIT Internal Medicine; ATTEND Internal Medicine
DX: R55 Syncope and collapse (principal); I49.9 Cardiac arrhythmia, unspecified; E11.9 Type 2 diabetes mellitus without complications; G89.29 Other chronic pain; M54.2 Cervicalgia; Z79.84 Long term (current) use of oral hypoglycemic drugs; Z79.82 Long term (current) use of aspirin; Z79.899 Other long term (current) drug therapy
CPT/HCPCS: 36415; 70450; 71010; 72125; 80048; 80053; 81001; 82962; 83735; 84443; 84484; 85025; 85610; 93005; 93306; 93880; 96360; 99285; A9270; J1815; J3475; J7040; 96361; 96365; 96366; G0378